=== PATIENT | female | born 1985 | race Caucasian/White ===

== ENCOUNTER 2023-05-21 12:33 | Emergency (ER) | payer MEDICAID ==
[~2023-05-21] VITALS: Ht 162.6 cm; Wt 67.0 kg
[2023-05-21 12:39] VITALS: TEMP 98.7; O2SAT 99
[2023-05-21] MEDS ORDERED: IBUPROFEN 600MG TABLET PO ONE (13:00)
[2023-05-21 13:12] VITALS: BP 124/86; PULSE 95; RESP 18
[2023-05-21] MEDS ORDERED: CYCL10TA21 MT (14:24)
[2023-05-21] MEDS ORDERED: IBUP-2029 MT (14:24)
== END 2023-05-21 15:06 | disposition home or self-care (01) ==
LOC: ER 12:33
DX: S80.12XA Contusion of left lower leg, initial encounter (principal); S09.90XA Unspecified injury of head, initial encounter; Z88.0 Allergy status to penicillin; V99.XXXA Unspecified transport accident, initial encounter; Y93.89 Activity, other specified; Y92.89 Other specified places as the place of occurrence of the external cause; Y99.8 Other external cause status
CPT/HCPCS: 73590; 81025; 99284